=== PATIENT | male | born 1960 | race Caucasian/White ===

== ENCOUNTER 2022-05-24 19:23 | Emergency (ER) | payer OTHER ==
[~2022-05-24] VITALS: Ht 172.7 cm; Wt 88.5 kg
[2022-05-24] MEDS ORDERED: 0.9%NACL 1000ML 1,000 ML IV SCH (19:30)
[2022-05-24] MEDS ORDERED: IPRATROPIUM/ALBUTEROL SULFATE 3 ML SOLUTION IH ONE (19:30)
[2022-05-24] MEDS ORDERED: ACETAMINOPHEN 500 MG TABLET PO ONE (19:30)
[2022-05-24] MEDS ORDERED: ZOSYN 3.375GM +NS 50ML IVPB STA (19:42)
[2022-05-24] MEDS ORDERED: SOLU-MEDROL 125MG VIAL IVP ONE (20:00)
[2022-05-24] MEDS ORDERED: ALBUTEROL 0.083% 2.5 MG/3 ML INH IH ONE ×3 (20:00→22:00)
[2022-05-24] MEDS ORDERED: ONDANSETRON 4MG INJ IVP ONE (20:00)
[2022-05-24 20:02] LABS: BASOPHILS % (AUTO) 0.6 % (0.0-5.0); EOSINOPHILS % (AUTO) 0.7 % (0.0-8.0); HEMATOCRIT 48.5 % (42-54); LYMPHOCYTES % (AUTO) 14.7 % (21.0-51.0); MEAN CORPUSCULAR HEMOGLOBIN 32.3 pg (27.0-33.0); MEAN CORPUSCULAR HGB CONC 33.6 g/dL (32.0-36.0); MEAN CORPUSCULAR VOLUME 96.2 fL (79-99); NEUTROPHILS % (AUTO) 70.8 % (40.0-77.0); PLATELET COUNT (AUTO) 175 K/uL (130-400); RED BLOOD CELL COUNT(AUTO) 5.04 MIL/uL (4.50-6.20); RED CELL DISTRIBUTION WIDTH 12.8 % (11.0-15.5); WHITE BLOOD COUNT (AUTO) 5.4 K/uL (4.8-10.8)
[2022-05-24 20:11] LABS: POTASSIUM 3.9 mmol/L (3.5-5.1)
[2022-05-24 20:20] LABS: TOTAL PROTEIN, SERUM 7.9 g/dL (6.0-8.3)
[2022-05-24] MEDS ORDERED: 0.9%NACL 1000ML 1,000 ML IV ONE (20:30)
[2022-05-24] MEDS ORDERED: KETOROLAC 30MG VIAL (30MG/ML) IVP ONE (21:00)
[2022-05-25] MEDS ORDERED: ALBU18HF7 IH (00:12)
[2022-05-25] MEDS ORDERED: IPRAHFA IH (00:12)
[2022-05-25] MEDS ORDERED: PRED20TA3 PO (00:12)
[2022-05-25] MEDS ORDERED: AMOX1TAB16 PO (00:12)
[2022-05-25 00:38] VITALS: BP 122/67
== END 2022-05-25 00:46 | disposition left against medical advice (07) ==
LOC: EDSEX 19:23 → EDH 19:23
DX: R06.03 Acute respiratory distress (principal); J44.1 Chronic obstructive pulmonary disease with (acute) exacerbation; Z20.822 Contact with and (suspected) exposure to COVID-19; Z72.0 Tobacco use
CPT/HCPCS: 99291; 96365; 96375; 71045; 87635; 84484; 80053; 83880; 85025; 87040 ×2; 87880; 87804 ×2; 83605; 36415; 93005; 94640 ×4; C9803; J2930; J1885; J2543

== ENCOUNTER 2024-07-21 10:57 | Emergency (ER) | payer SELFPAY ==
[~2024-07-21] VITALS: Ht 172.7 cm; Wt 72.6 kg
[~2024-07-21 10:57] MED LIST: ALBU18HF7 IH; AMOX1TAB16 PO; IPRAHFA IH; PRED20TA3 PO
--- NOTE | 2024-07-21 11:04 | ERN ---
ED Note History of Present Illness Stated Complaint: SOB Chief Complaint: Shortness of Breath Time Seen by MD: 10:58 Dictation: 63-YEAR-OLD MALE COMING IN TODAY WITH SHORTNESS A BREATH WITH A DRY COUGH FOR THE LAST 3-4 DAYS. NO NAUSEA VOMITING NO CHEST PAIN NO BACK PAIN. STATES HE HAD A GREATER THAN 60 YEAR SMOKING HISTORY. ONE MONTH AGO. STATES HE HAS NO PRIMARY CARE DOCTOR NO NEBULIZER AT HOME. NO CHRONIC MEDICAL CONDITIONS HOWEVER DOES NOT HAVE A DOCTOR IN HIS LAST DOCTOR HE SAW WAS MORE THAN FIVE YEARS AGO. Allergies: Coded Allergies: No Known Drug Allergies (Unverified Allergy, Unknown, 05/24/22) Home Meds Active Scripts Ipratropium Thornton (Atrovent Hfa) 12.9 Gm Hfa.aer.ad, 200 GM IH QID for 10 Days, #1 VIAL 1 Refill Prov:AMMON HUTCHINS MD 05/25/22 Albuterol Sulfate (Ventolin Hfa) 18 Gm Hfa.aer.ad, 18 GM IH QID for 5 Days, #1 INHALER 1 Refill Prov:AMMON HUTCHINS MD 05/25/22 Prednisone (Prednisone) 20 Mg Tablet, 3 TAB PO AD for 5 Days, #15 TAB 0 Refills TAKE 1 TAB BY MOUTH THREE TIMES PER DAY X3 DAYS, THEN TAKE 1 TAB BY MOUTH TWICE A DAY X2 DAYS, THEN TAKE 1 TAB BY MOUTH ONCE A DAY X1 DAY. Prov:AMMON HUTCHINS MD 05/25/22 Amoxicillin/Potassium Clav (Amox Tr-K Clv 875-125 mg Tab) 1 Each Tablet, 1 EACH PO BID for 10 Days, #20 TAB Prov:AMMON HUTCHINS MD 05/25/22 Past Medical History Past Medical History: No Pertinent History Surgical History: None Social History: Smokers, Lives with family, Other RN Note Reviewed/Agreed w/PFSH: Yes Review of System Dictation CONSTITUTIONAL: NEGATIVE EXCEPT FOR HPI HEAD/FACE: NEGATIVE EXCEPT FOR HPI EENT: NEGATIVE EXCEPT FOR HPI RESPIRATORY: NEGATIVE EXCEPT FOR HPI SHORTNESS A BREATH/COUGH GASTROINTESTINAL/ABDOMINAL: NEGATIVE EXCEPT FOR HPI GENITOURINARY: NEGATIVE EXCEPT FOR HPI MUSCULOSKELETAL: NEGATIVE EXCEPT FOR HPI INTEGUMENTARY: NEGATIVE EXCEPT FOR HPI NEUROLOGICAL/PSYCH: NEGATIVE EXCEPT FOR HPI HEMATOLOGIC/LYMPHATIC: NEGATIVE EXCEPT FOR HPI ALL SYSTEMS NEGATIVE, EXCEPT NOTED ABOVE. 13 POINT REVIEW OF SYSTEMS ASSESSED AND ALL NEGATIVE EXCEPT FOR ABOVE. Initial Vital Sign VS Vital Signs Date Time Temp Pulse Resp B/P (MAP) Pulse Ox O2 Delivery O2 Flow Rate FiO2 07/21/24 10:59 98.4 111 24 152/113 93 Room Air 0 07/21/24 11:00 28 Physical Exam Dictation VITAL SIGNS REVIEWED GENERAL APPEARANCE: ALERT, ORIENTED X 3, MODERATE ACUTE DISTRESS, WELL DEVELOPE D, NOURISHED. HEAD AND FACE: NON-TRAUMATIC. EYES: PERRL, PINK CONJUNCTIVAS, EYELID NO TRAUMA, ANTERIOR CHAMBER WITH ARCUS SENILIS. EARS: PINNAS INTACT AND NO SIGNS OF TRAUMA OR ERYTHEMA EAR CANALS CLEAR AND NO DISCHARGE TM NO ERYTHEMA NOSE: NO DISCHARGE, NO BLEEDING. OROPHARYNX: MOUTH NORMAL, TONGUE PINK, PHARYNX CLEAR,NO ERYTHEMA, TONSILS NO EXUDATES, NO ABSCESSES NOTED, MUCOUS MEMBRANE MOIST NECK: SUPPLE, NON-TENDER, NO THYROMEGALY, NO MASSES, NO JVD, NO BRUITS BREAST:DEFERRED CHEST:NO TENDERNESS, NO CREPITUS, NO PARADOXICAL MOVEMENT, NO RETRACTIONS LUNGS:CLEAR, WELL-VENTILATED, SYMMETRIC, BILATERAL BREATH SOUNDS CLEAR TO AUSCULTATION DIMINISHED THROUGHOUT TACHYPNEA. HEART: REGULAR RATE, REGULAR RHYTHM, NO MURMUR, NO GALLOPS VASCULAR: NO PERIPHERAL EDEMA, ABDOMEN: SOFT, POSITIVE BOWEL SOUNDS, NONDISTENDED, NO GUARDING, NONTENDER, NO REBOUND, NO MASSES NO HEPATOMEGALY, NO SPLENOMEGALY, NO BECK'S SIGN, NO HERNIAS. RECTAL: DEFERRED GENITAL: DEFERRED NEUROLOGICAL: NORMAL SPEECH, MOTOR FUNCTION INTACT, SENSORY FUNCTION INTACT MUSCULOSKELETAL: NECK NONTENDER, FULL RANGE OF MOTION, BACK NONTENDER, FULL RANGE OF MOTION, EXTREMITIES: NONTENDER, FULL RANGE OF MOTION SKIN: COLOR PINK, DRY, NO TURGOR, NO RASH, NO LACERATIONS, NO ABRASIONS, NO CONTUSIONS. LYMPHATIC: DEFERRED Results (Laboratory/Radiology) Laboratory/Radiology Laboratory Tests Test 07/21/24 11:05 07/21/24 11:20 07/21/24 11:21 07/21/24 11:33 White Blood Count 9.2 K/uL (4.8-10.8) Red Blood Count 5.26 MIL/uL (4.50-6.20) Hemoglobin 17.5 g/dL (14.0-18.0) Hematocrit 50.7 % (42-54) Mean Corpuscular Volume 96.4 fL (79-99) Mean Corpuscular Hemoglobin 33.3 pg (27.0-33.0) H Mean Corpuscular Hemoglobin Concent 34.5 g/dL (32.0-36.0) Red Cell Distribution Width 13.4 % (11.0-15.5) Platelet Count 211 K/uL (130-400) Mean Platelet Volume 9.5 fL (7.5-10.5) Immature Granulocyte % (Auto) 0.4 % (0-1) Neutrophils (%) (Auto) 67.5 % (40.0-77.0) Lymphocytes (%) (Auto) 16.3 % (21.0-51.0) L Monocytes (%) (Auto) 14.3 % (3.0-13.0) H Eosinophils (%) (Auto) 0.7 % (0.0-8.0) Basophils (%) (Auto) 0.8 % (0.0-5.0) Neutrophils # (Auto) 6.2 K/uL (1.8-7.7) Lymphocytes # (Auto) 1.5 K/uL (1.0-4.8) Monocytes # (Auto) 1.3 K/uL (0.1-1.0) H Eosinophils # (Auto) 0.06 K/uL (0.00-0.70) Basophils # (Auto) 0.07 K/uL (0.00-0.20) Absolute Immature Granulocyte (auto 0.04 K/uL (0-1) Nucleated Red Blood Cells 0.0 % (0.0-0.19) Sodium Level 135 mmol/L (136-145) L Potassium Level 4.1 mmol/L (3.5-5.1) Chloride Level 97 mmol/L (101-111) L Carbon Dioxide Level 29 mmol/L (21-32) Blood Urea Nitrogen 12 mg/dL (7-18) Creatinine 0.9 mg/dL (0.5-1.3) Glomerular Filtration Rate Calc 96 mL/min (>90) Random Glucose 160 mg/dL (70-105) H Total Calcium 9.2 mg/dL (8.5-10.1) Troponin I High Sensitivity 13 ng/L (4-75) B-Type Natriuretic Peptide 37 pg/mL (0-100) SARS-CoV-2 Antigen (Rapid) PRESUMPTIVE NEGATIVE Blood Gas Specimen Type Arterial Arterial Arterial Blood pH 7.385 (7.350-7.450) 7.456 (7.350-7.450) Arterial Blood Partial Pressure CO2 53 mmHg (35-48) H 41 mmHg (35-48) Arterial Blood Partial Pressure O2 < 45.0 mmHg (83.0-108.0) 90.1 mmHg (83.0-108.0) Arterial Blood HCO3 30.9 mmol/L (21.0-28.0) H 28.0 mmol/L (21.0-28.0) Arterial Blood Oxygen Saturation 48.5 % (94.0-98.0) L 97.2 % (94.0-98.0) Arterial Blood Base Excess 4.5 mmol/L (-2.0-3.0) H 3.8 mmol/L (-2.0-3.0) H Blood Gas Temperature 37.0 CELSIUS (35.5-37.0) 37.0 CELSIUS (35.5-37.0) Blood Gas Flow-by 2.00 L/min (0.00-15.00) 2.00 L/min (0.00-15.00) Blood Gas Vent Mode NC (ROOM AIR) NC (ROOM AIR) FiO2 28.0 % 28.0 % Blood Gas Specimen Comment LRVERO LRVERO REASON: SHORTNESS A BREATH COMPARISON: 05/24/2022 FINDINGS: Lungs are clear. Diaphragms appear flattened and lung base is hyperlucent, this can be seen with COPD. There is mild blunting of the costophrenic angles, unchanged compared to prior study. Heart size is normal. No vascular congestion. There are no focal infiltrates. There are no pulmonary nodules. IMPRESSION: 1. Findings suggesting possible COPD, unchanged, no acute findings. Labs Reviewed?: Yes EKG Comment: EKG SINUS TACHYCARDIA/HEART RATE 113/BIATRIAL ENLARGEMENT/NO ECTOPY ED Course ED Course Orders Procedure Category Date Status Time Ipratropium/Albuterol PHA 07/21/24 In Process Neb (Duoneb) 11:00 Methylprednisolone PHA 07/21/24 Complete Succ 125mg (Solu-Medr 11:00 Cbc With Differential LAB 07/21/24 Complete 11:00 B-Type Natriuretic LAB 07/21/24 Complete Peptide 11:00 Chest 1vw RAD 07/21/24 Resulted 11:00 12 Lead Ekg Tracing- EKG 07/21/24 Logged Technical 11:00 Troponin I High LAB 07/21/24 Complete Sensitivity 11:00 Basic Metabolic Panel LAB 07/21/24 Complete 11:00 Arterial Blood Gas RT 07/21/24 Transmitted 11:00 Ipratropium/Albuterol PHA 07/21/24 In Process Neb (Duoneb) 11:03 Oxygen By Nc/Pulse Ox CPOE 07/21/24 Transmitted 11:04 Covid19 (Sars Antigen LAB 07/21/24 Complete Rapid) 11:18 Arterial Blood Gas LAB 07/21/24 Complete 11:21 Arterial Blood Gas LAB 07/21/24 Complete 11:33 Levofloxacin 500mg PHA 07/21/24 Complete Tab (Levaquin 500mg T 12:19 Current Medications Medications (Trade) Dose Ordered Sig/Fatuma Route PRN Reason Start Time Stop Time Status Last Admin Dose Admin Albuterol (DUOneb) 1 UDVIAL ONCE ONCE IH 07/21/24 11:00 07/21/24 11:04 DC 07/21/24 11:35 Albuterol (DUOneb) 1 udvial STK-MED ONCE IH 07/21/24 11:03 07/21/24 11:04 DC Levofloxacin (LEvaquIN 500MG TAB) 500 mg ONCE ONCE PO 07/21/24 12:19 07/21/24 12:22 DC Methylprednisolone Sodium Succinate (Solu-medROL 125MG) 125 mg ONCE ONCE IVP 07/21/24 11:00 07/21/24 11:04 DC 07/21/24 11:11 Vital Signs Date Time Temp Pulse Resp B/P (MAP) Pulse Ox O2 Delivery O2 Flow Rate FiO2 07/21/24 12:11 98.2 91 12 131/67 96 Nasal Cannula* 2 28 07/21/24 11:38 96 18 07/21/24 11:00 98.2 109 22 152/113 96 Nasal Cannula* 2 28 07/21/24 10:59 98.4 111 24 152/113 93 Room Air 0 1225/PATIENT IS SATURATING 96 97%. RESPIRATIONS UNLABORED AND BILATERAL BREATH SOUNDS MARKEDLY CLEAR AFTER TREATMENT. PATIENT STATES HE FEELS BETTER WE WILL BE DISCHARGED HOME WITH COPD EXACERBATION ALSO EARLY AWARE THAT HE IS PROBABLE NEW ONSET DIABETES HEART Score Response (Comments) Value EKG: Repolarization changes 1 Age: 45-65yrs (+1) 1 Risk Factors: 1-2 risk factors (+1) 1 Initial Troponin: Normal limit (0) 0 Total 3 Medical Decision Making MDM MDM: DIFFERENTIAL DIAGNOSIS: ACS/AMI/ARRHYTHMIA/PNEUMONIA/BRONCHITIS/COPD EXACERBATION/HYPOXEMIA/ELECTROLYTE IMBALANCE/DEHYDRATION/TOBACCO ABUSE RATIONALE: TESTS CONSIDERED AND ORDERED SECONDARY TO SHARED DECISION MAKING INCLUDE: EKG/LABS/RADIOLOGY PREVIOUS OUTSIDE RECORDS REVIEWED: OLD ER VISITS. RISK OF COMPLICATION AND/OR MORBIDITY OR MORTALITY OF PATIENT MANAGEMENT: NONE MEDICATIONS-PER MEDICATION RECONCILIATION NEED FOR HOSPITALIZATION: PATIENT DOES NOT MEET CRITERIA FOR HOSPITALIZATION. NO NEED FOR EMERGENCY MAJOR/MINOR SURGERY: NO THERE ARE NO SOCIAL CONCERNS WITH THIS PATIENT. PATIENT GREATER THAN 60 YEAR SMOKER, QUIT ONE MONTH AGO PRESCRIPTION DRUG MANAGEMENT LEVAQUIN/ALBUTEROL/PREDNISONE PRESCRIPTIONS WILL INCLUDE SYMPTOMATIC CARE PATIENT'S PRIOR EXTERNAL MEDICAL RECORDS FROM OTHER ER VISITS WERE REVIEWED BY ME INDICATED. PRIOR TESTING AND RESULTS FROM PREVIOUS VISITS WERE REVIEWED. PRIOR TESTS WERE TAKEN INTO ACCOUNT WITH MEDICAL DECISION MAKING AND RESOURCE UTILIZATION, INDEPENDENT HISTORIAN/HISTORIANS WERE USED TO OBTAIN COMPLETE MEDICAL HISTORY. I INDEPENDENTLY INTERPRETED THE TEST THAT WERE PERFORMED, RESULTS WERE REVIEWED BY ME AND CONSIDERED FINDINGS ON RADIOLOGY IF ORDERED. MEDICAL MANAGEMENT AND EXAMINATION INTERPRETATION DISCUSSIONS WERE HAD BY ME WITH OTHER QUALIFIED HEALTHCARE PROFESSIONALS INDICATED FOR THE PATIENT'S CARE. DX & DISP Disposition: Discharge Departure Impression: Primary Impression: COPD exacerbation Additional Impressions: Tobacco abuse, Respiratory distress, Hyperglycemia Condition: Stable Scripts Albuterol Sulfate (Ventolin Hfa/Proventil Hfa/Proair Hfa) 90 Mcg Puff 2 PUFF IH Q4H for WHEEZING, #1 INHALER 0 Refills Prov: LU PITTMAN NP 07/21/24 Prednisone (Prednisone) 20 Mg Tablet 1 TAB PO AD for 6 Days, #14 TAB 0 Refills TAKE 1 TAB BY MOUTH THREE TIMES PER DAY X3 DAYS, THEN TAKE 1 TAB BY MOUTH TWICE A DAY X2 DAYS, THEN TAKE 1 TAB BY MOUTH ONCE A DAY X1 DAY. Prov: LU PITTMAN NP 07/21/24 Levofloxacin (Levofloxacin) 500 Mg Tablet 1 TAB PO DAILY for 7 Days, #7 TAB 0 Refills Prov: LU PITTMAN NP 07/21/24 Additional Instructions: FOLLOW-UP WITH PRIMARY CARE PROVIDER IN 1 TO 2 DAYS. TAKE MEDICATIONS DIRECTED HERE IN THE EMERGENCY ROOM. OKAY TO CONTINUE HOME MEDICATIONS UNLESS OTHERWISE DISCUSSED DURING YOUR VISIT IN THE EMERGENCY ROOM TODAY. RETURN TO YOUR NEAREST EMERGENCY ROOM IF SYMPTOMS WORSEN OR IF THERE IS NO IMPROVEMENT. CALL 911 IF YOU NEED IMMEDIATE ASSISTANCE. TAKE TYLENOL OR MOTRIN [id number] NEEDED AND IF NO CONTRAINDICATIONS ARE PRESENT. INCREASE ORAL HYDRATION. A WOUND CULTURE OR URINE CULTURE WAS ORDERED HERE IN THE EMERGENCY ROOM DEPARTMENT PLEASE FOLLOW-UP WITH PRIMARY CARE PROVIDER AND ADVISE THEM TO GET REPEAT PORTS FROM OUR FACILITY. IF YOU HAD ANY ALDO WRAP/SPLINTS THAT WERE APPLIED HERE, PLEASE DO NOT REMOVE THEM UNTIL YOU SEE YOUR PRIMARY CARE OR SPECIALTY. STOP USING TOBACCO. USE ALBUTEROL INHALER EVERY 4 HOURS WHILE AWAKE FOR THE NEXT THREE DAYS. TAKE PREDNISONE DIRECTED UNTIL GONE. TAKE ANTIBIOTICS DIRECTED UNTIL GONE. FOLLOW UP WITH ONE OF THE DOCTORS ON THE LIST PROVIDED TO TO RECHECK YOUR COPD WELL RULE OUT DIABETES Referrals: SELF,REFERRAL (PCP) Time of Disposition: 12:27 I have reviewed the case, and I agree with, Diagnosis and Plan LU PITTMAN NP Jul 21, 2024 11:04
[2024-07-21] MEDS: Solu-medROL 125MG VIAL IVP ONE (11:11)
[2024-07-21 11:15] LABS: BASOPHILS # (AUTO) 0.07 K/uL (0.00-0.20); BASOPHILS % (AUTO) 0.8 % (0.0-5.0); EOSINOPHILS # (AUTO) 0.06 K/uL (0.00-0.70); EOSINOPHILS % (AUTO) 0.7 % (0.0-8.0); HEMATOCRIT 50.7 % (42-54); IMMATURE GRANULOCYTE ABSOLUTE 0.04 K/uL (0-1); LYMPHOCYTES # (AUTO) 1.5 K/uL (1.0-4.8); LYMPHOCYTES % (AUTO) 16.3 % (21.0-51.0); MEAN CORPUSCULAR HEMOGLOBIN 33.3 pg (27.0-33.0); MEAN CORPUSCULAR HGB CONC 34.5 g/dL (32.0-36.0); MEAN CORPUSCULAR VOLUME 96.4 fL (79-99); MONOCYTES # (AUTO) 1.3 K/uL (0.1-1.0); MONOCYTES % (AUTO) 14.3 % (3.0-13.0); NEUTROPHILS # (AUTO) 6.2 K/uL (1.8-7.7); NEUTROPHILS % (AUTO) 67.5 % (40.0-77.0); PLATELET COUNT (AUTO) 211 K/uL (130-400); RED BLOOD CELL COUNT(AUTO) 5.26 MIL/uL (4.50-6.20); RED CELL DISTRIBUTION WIDTH 13.4 % (11.0-15.5); WHITE BLOOD COUNT (AUTO) 9.2 K/uL (4.8-10.8)
[2024-07-21 11:19] LABS: CREATININE 0.9 mg/dL (0.5-1.3); POTASSIUM 4.1 mmol/L (3.5-5.1)
[2024-07-21 11:22] LABS: DEVICE COMMENT LRVERO; VENT MODE, BG NC (ROOM AIR)
--- NOTE | 2024-07-21 11:23 | HMCIMG ---
CHEST 1VW REASON: SHORTNESS A BREATH COMPARISON: 05/24/2022 FINDINGS: Lungs are clear. Diaphragms appear flattened and lung base is hyperlucent, this can be seen with COPD. There is mild blunting of the costophrenic angles, unchanged compared to prior study. Heart size is normal. No vascular congestion. There are no focal infiltrates. There are no pulmonary nodules. IMPRESSION: 1. Findings suggesting possible COPD, unchanged, no acute findings.
[2024-07-21 11:34] LABS: B-TYPE NATRIURETIC PEPTIDE 37 pg/mL (0-100)
[2024-07-21 11:34] LABS: ABG BASE EXCESS 3.8 mmol/L (-2.0-3.0); ABG OXYGEN SATURATION 97.2 % (94.0-98.0); ABG PCO2 41 mmHg (35-48); ABG PH 7.456 (7.350-7.450); DEVICE COMMENT LRVERO; PO2, ARTERIAL BG 90.1 mmHg (83.0-108.0); VENT MODE, BG NC (ROOM AIR)
[2024-07-21] MEDS: IpraTROPium/alBUTERol SULFATE 3 ML SOLUTION IH ONE ×2 (11:35)
[2024-07-21 11:38] VITALS: PULSE 96; RESP 18
[2024-07-21 12:11] VITALS: BP 131/67; PULSE 91; RESP 12; TEMP 98.2; O2SAT 96
[2024-07-21] MEDS ORDERED: ALBUHFA IH (12:28)
[2024-07-21] MEDS ORDERED: LEVO-70 PO (12:28)
[2024-07-21] MEDS ORDERED: PRED20TA3 PO (12:28)
[2024-07-21] MEDS: levoFLOXacin 500 MG TABLET PO ONE (12:31)
--- NOTE | 2024-07-21 12:35 | NUR ---
PT AAOX4, STABLE NO DISTRESS VITALS WNL NO C/O PAIN NOW, PT STATED HE FEELS BETTER THAN WHEN HE CAME IN, HE CAN BREATHE BETTER. PT GIVEN INSTRUCTIONS AT BEDSIDE VERBALIZED UNDERSTANDING, PT GIVEN 3 RX IN HAND WILL START TODAY. PT TAKEN TO CAR IN W/C DRIVEN HOME BY FRIEND CASTRO.
--- NOTE | 2024-07-21 13:00 | EKG ---
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
== END 2024-07-21 12:55 | disposition home or self-care (01) ==
LOC: EDH 10:57
DX: J44.1 Chronic obstructive pulmonary disease with (acute) exacerbation (principal); F17.200 Nicotine dependence, unspecified, uncomplicated; R06.03 Acute respiratory distress; R73.9 Hyperglycemia, unspecified; Z20.822 Contact with and (suspected) exposure to COVID-19; Z79.899 Other long term (current) drug therapy
CPT/HCPCS: 99285; 96374; 71045; 87426; 84484; 80048; 82803; 83880; 85025; 36415; 93005; 36600; 94640; J2919